=== PATIENT | female | born 1990 | race American Indian/Alaskan Native ===

== ENCOUNTER 2017-04-12 14:41 | Emergency (ER) | payer MEDICAID ==
--- NOTE | 2017-04-12 15:26 | Emergency Department Report ---
Stated Complaint: RT ABD PAIN/SPOTTING Time Seen by Provider: 04/12/17 15:22 - HPI History of Present Illness: PT states she has paragaurd IUD and had a pap smear last week. PT states she had lmp 03-26-17 and she has been intermittently bleeding since then. PT c/o R pelvic pain x 1 week - ROS Review of Systems: + RLQ pain, intermittent x 1 week + vaginal spotting x 2 weeks - Exam Physical Exam: PT looks well, non toxic abd soft, R pelvic ttp MSE screening note: Focused history and physical exam performed. Due to findings the following was ordered: labs, us ED Disposition for MSE Condition: Stable
[2017-04-12 16:07] LABS: Basophils % (Auto) 0.9 % (0.0-1.8); Eosinophils % (Auto) 1.6 % (0.0-4.3); Hemoglobin 12.1 gm/dl (10.1-14.3); Mean Corpuscular HGB Conc 33 % (30-34); Mean Corpuscular Hemoglobin 27 pg (28-32); Mean Corpuscular Volume 82 fl (79-97); Platelet Count 271 K/mm3 (140-440); Red Blood Count 4.52 M/mm3 (3.65-5.03); White Blood Count 5.4 K/mm3 (4.5-11.0)
[2017-04-12 16:26] LABS: Alanine Aminotransferase 12 units/L (7-56); Albumin 4.6 g/dL (3.9-5); Albumin/Globulin Ratio 1.4 %; Alkaline Phosphatase 55 units/L (35-129); Anion Gap 17 mmol/L; BUN/Creatinine Ratio 18.57; Blood Urea Nitrogen 13 mg/dL (7-17); Calcium 9.2 mg/dL (8.4-10.2); Carbon Dioxide 26 mmol/L (22-30); Chloride 100.5 mmol/L (98-107); Glucose 85 mg/dL (65-100); Potassium 4.1 mmol/L (3.6-5.0); Sodium 139 mmol/L (137-145); Total Protein 7.9 g/dL (6.3-8.2)
[2017-04-12 18:20] LABS: Bilirubin,Urine NEG (Negative); Blood,Urine LG (Negative); Ketones,Urine NEG (Negative); Leukocyte Esterase,Urine MOD (Negative); Mucus,Urine FEW /HPF; Nitrite,Urine NEG (Negative); Urobilinogen,Urine < 2.0 mg/dL (<2.0)
--- NOTE | 2017-04-12 18:51 | Ultrasound Report ---
FINAL REPORT EXAM: US TRANSVAGINAL HISTORY: paragaurd, R pelvic pain TECHNIQUE: Grayscale and color doppler ultrasound imaging of the pelvis was performed transvaginally. PRIORS: None. FINDINGS: Uterus: The uterus is homogeneous in echogenicity without focal mass. The uterus measures 7.1 x 4.6 x 5.4 centimeters. An intrauterine device is in appropriate position within the uterus. Endometrium: The endometrium is normal in echogenicity. The endometrium measures 14 millimeters. Ovaries: A complex cyst is seen within the left ovary measuring 2.3 centimeters. No right ovarian cysts. Normal color flow is seen to the left ovary. Doppler interrogation of the right ovary was not performed. The right ovary measures 2.2 x 1.1 x 1.8 centimeters. The left ovary measures 3.0 x 2.4 x 2.8 centimeters. Free fluid: A tiny amount of free fluid is seen within the pelvis which is likely physiologic. IMPRESSION: 1. Probable 2.3 centimeter hemorrhagic left ovarian cyst. Recommend followup pelvic ultrasound in 6-10 weeks. 2[address] IUD in place. 3. Normal right ovary.
--- NOTE | 2017-04-12 19:23 | Ultrasound Report ---
FINAL REPORT EXAM: US PELVIC COMPLETE HISTORY: paragaurd, R pelvic pain TECHNIQUE: Transabdominal pelvic ultrasound was performed in multiple grayscale sonographic images were obtained of the uterus and adnexa PRIORS: Endovaginal ultrasound from 04/12/2017 FINDINGS: Uterus is incompletely evaluated this study. Visualized portion of the endometrium measures approximately 6 millimeters in thickness. Intrauterine device is incompletely evaluated in this study. Ovaries were not visualized. IMPRESSION: 1. Visualized portion of the endometrium measures 6 millimeters in thickness. 2. Nonvisualization of the ovaries. 3. Please refer to report from endovaginal ultrasound from 04/12/2017 for additional information.
--- NOTE | 2017-04-13 00:14 | Emergency Department Report ---
HPI - General Chief Complaint: Abdominal Pain Time Seen by Provider: 04/12/17 15:22 - HPI HPI: This is a 26-year-old female presents to the emergency department with complaint of right-sided pelvic pain as well as some vaginal bleeding/spotting. The patient said she had her menstrual cycle on the first of this month and then the bleeding started but a few days later. Began again and she has been having about 2 weeks of vaginal spotting. For the past week she has also been having this intermittent discomfort to the right side of the pelvis. She denies any fever, nausea, vomiting, back pain, dysuria, vaginal discharge. She denies any significant past medical history. She has not taken anything for her symptoms prior to presentation. She denies any past surgical history. She does not have a primary care physician but used to go to [facility] for her gynecological needs. She is not taking anything for her symptoms prior to presentation. No recent travel or sick contacts at home. 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 - Surgical History Hx Cholecystectomy: Yes - Social History Smoking Status: Never Smoker Substance Use Type: None - Medications Home Medications: Home Medications Medication Instructions Recorded Confirmed Last Taken Type Vit No.126/Iron/FA 1 each PO DAILY 09/04/14 12/13/15 12/11/15 09:00 History [Classic Tablet] 1 Ursodiol [Ursodiol] 1 tab PO 4XD 11/06/15 12/13/15 12/10/15 21:00 History 1 Ibuprofen [Motrin 800 MG tab] 800 mg PO Q8HR PRN #30 tablet 12/14/15 Unknown Rx Lidocain2.5%/Prilocai2.5% [Emla] 5 gm TP ONCE PRN #1 tube 12/14/15 Unknown Rx HYDROcodone/APAP 5-325 [[place] 1 each PO Q6HR PRN #10 tablet 04/13/17 Unknown Rx 5/325] ED Review of Systems ROS: Stated complaint: RT ABD PAIN/SPOTTING Other details as noted in HPI Comment: All other systems reviewed and negative Constitutional: denies: chills, fever Eyes: denies: eye pain, eye discharge, vision change ENT: denies: ear pain, throat pain Respiratory: denies: cough, shortness of breath, wheezing Cardiovascular: denies: chest pain, palpitations Gastrointestinal: denies: nausea, vomiting Genitourinary: other (pelvic pain, vaginal bleeding). denies: dysuria, discharge Musculoskeletal: denies: back pain, joint swelling, arthralgia Skin: denies: rash, lesions Neurological: denies: headache, weakness, paresthesias Physical Exam - Physical Exam Vital Signs: Vital Signs 04/12/17 04/12/17 15:22 21:56 Temperature 98.6 F 97.7 F Pulse Rate 78 61 Respiratory 20 18 Rate Blood Pressure 123/84 112/69 O2 Sat by Pulse 100 100 Oximetry Physical Exam: GENERAL: The patient is well-developed well-nourished. HENT: Normocephalic. Atraumatic. Patient has moist mucous membranes. EYES: Extraocular motions are intact. Pupils equal reactive to light bilaterally. NECK: Supple. Trachea is midline. CHEST/LUNGS: Clear to auscultation. There is no respiratory distress noted. HEART/CARDIOVASCULAR: Regular. There is no tachycardia. There is no gallop rub or murmur. ABDOMEN: Abdomen is soft, nontender. Patient has normal bowel sounds. There is no abdominal distention. No guarding or rebound tenderness. SKIN: Skin is warm and dry. NEURO: The patient is awake, alert, and oriented. The patient is cooperative. The patient has no focal neurologic deficits. The patient has normal speech. MUSCULOSKELETAL: There is no tenderness or deformity. There is no evidence of acute injury. ED Course Vital Signs 04/12/17 04/12/17 15:22 21:56 Temperature 98.6 F 97.7 F Pulse Rate 78 61 Respiratory 20 18 Rate Blood Pressure 123/84 112/69 O2 Sat by Pulse 100 100 Oximetry ED Medical Decision Making - Lab Data Result diagrams: 04/12/17 15:49 04/12/17 15:49 - Radiology Data Radiology results: report reviewed EXAM: US TRANSVAGINAL HISTORY: paragaurd, R pelvic pain TECHNIQUE: Grayscale and color doppler ultrasound imaging of the pelvis was performed transvaginally. PRIORS: None. FINDINGS: Uterus: The uterus is homogeneous in echogenicity without focal mass. The uterus measures 7.1 x 4.6 x 5.4 centimeters. An intrauterine device is in appropriate position within the uterus. Endometrium: The endometrium is normal in echogenicity. The endometrium measures 14 millimeters. Ovaries: A complex cyst is seen within the left ovary measuring 2.3 centimeters. No right ovarian cysts. Normal color flow is seen to the left ovary. Doppler interrogation of the right ovary was not performed. The right ovary measures 2.2 x 1.1 x 1.8 centimeters. The left ovary measures 3.0 x 2.4 x 2.8 centimeters. Free fluid: A tiny amount of free fluid is seen within the pelvis which is likely physiologic. IMPRESSION: 1. Probable 2.3 centimeter hemorrhagic left ovarian cyst. Recommend followup pelvic ultrasound in 6-10 weeks[address] 2[address] IUD in place. 3. Normal right ovary. - Medical Decision Making 26-year-old female presents with a 2 week history of some vaginal spotting that is off of her menstrual cycle and a one-week history of some intermittent right lower quadrant pelvic pain. Labs are mostly unremarkable. No leukocytosis. The patient is not . No urinary tract infection. She does not complain of any discharge. Vital signs stable including being afebrile. Transvaginal ultrasound was done that shows a left-sided ovarian hemorrhagic cyst. This may not necessarily be the source of her discomfort but there does not appear to be any dangerous or emergent condition. She has low suspicion for appendicitis as there is no leukocytosis, abdominal tenderness to palpation , peritoneal signs. Right ovary appears normal and there are no torsions. She appears safe for discharge home at this time. She has been given referrals for [facility] and primary care. She will return to the ER if any worsening of her symptoms or any acute distress. - Differential Diagnosis ovarian torsion, ovarian cyst, , UTI, fibroids Critical Care Time: No Critical care attestation.: If time is entered above; I have spent that time in minutes in the direct care of this critically ill patient, excluding procedure time. ED Disposition Clinical Impression: Hemorrhagic cyst of left ovary, Pelvic pain Disposition: TO HOME OR SELFCARE Is pt being admited?: No Condition: Stable Instructions: Dysfunctional Uterine Bleeding (ED), Ovarian Cyst (ED) Additional Instructions: Please follow up with an [facility] [facility] in the next few days. I have also given you multiple referrals for primary care clinics. Return to the emergency Department with any worsening of your symptoms or any acute distress. You have been prescribed a medication that is sedating and therefore should not be taken prior to driving, working, and responsible for children and in no way should be mixed with alcohol of any quantity. Prescriptions: HYDROcodone/APAP 5-325 [[place] 5/325] 1 each PO Q6HR PRN #10 tablet PRN Reason: Pain Referrals: PRIMARY CARE, [Primary Care Provider] - 3-5 Days [facility] [Outside] - 3-5 Days [facility] [Outside] - 3-5 Days [facility] [Provider Group] - 3-5 Days [facility] [Provider Group] - 3-5 Days Time of Disposition: 00:09
[2017-04-13 00:21] VITALS: BP 114/71
== END 2017-04-13 00:20 | disposition home or self-care (01) ==
LOC: ED 14:41
DX: N83.8 Other noninflammatory disorders of ovary, fallopian tube and broad ligament (principal); R10.2 Pelvic and perineal pain; M19.90 Unspecified osteoarthritis, unspecified site; G43.909 Migraine, unspecified, not intractable, without status migrainosus; Z90.49 Acquired absence of other specified parts of digestive tract
CPT/HCPCS: 36415; 76830; 76856; 80053; 81001; 84703; 85025

== ENCOUNTER 2017-08-06 03:59 | Emergency (ER) | payer MEDICAID, OTHER ==
[2017-08-06 04:19] VITALS: BP 117/80
[2017-08-06] MEDS ORDERED: ASPIRIN PO ONE (04:19)
[2017-08-06] MEDS ORDERED: ASPIRIN ONE (04:22)
[2017-08-06 05:29] LABS: Basophils % (Auto) 0.8 % (0.0-1.8); Eosinophils # (Auto) 0.1 K/mm3 (0.0-0.4); Eosinophils % (Auto) 3.2 % (0.0-4.3); Hematocrit 38.6 % (30.3-42.9); Hemoglobin 12.7 gm/dl (10.1-14.3); Lymphocytes # (Auto) 1.5 K/mm3 (1.2-5.4); Lymphocytes % (Auto) 36.8 % (13.4-35.0); Mean Corpuscular HGB Conc 33 % (30-34); Mean Corpuscular Hemoglobin 27 pg (28-32); Mean Corpuscular Volume 82 fl (79-97); Monocytes # (Auto) 0.4 K/mm3 (0.0-0.8); Monocytes % (Auto) 9.2 % (0.0-7.3); Platelet Count 237 K/mm3 (140-440); Red Blood Count 4.73 M/mm3 (3.65-5.03); Red Cell Distribution Width 14.3 % (13.2-15.2)
[2017-08-06 05:50] LABS: BUN/Creatinine Ratio 13; Blood Urea Nitrogen 8 mg/dL (7-17); Calcium 8.6 mg/dL (8.4-10.2); Hemolysis Index 5
--- NOTE | 2017-08-06 06:54 | Cat Scan Report ---
FINAL REPORT PROCEDURE: CT HEAD/BRAIN WO CON TECHNIQUE: Computerized tomography of the head was performed without contrast material. HISTORY: cp with [facility] COMPARISON: No prior studies are available for comparison. FINDINGS: Skull and scalp: Normal. Paranasal sinuses: Normal. Ventricles and subarachnoid spaces: Normal. Cerebrum: No evidence of hemorrhage, acute infarction or mass . Cerebellum and brainstem: No evidence of hemorrhage, acute infarction or mass. Vasculature: Normal. Comments: None. IMPRESSION: Normal Examination
[2017-08-06 07:12] LABS: Bacteria,Urine 1+ /HPF (Negative); Bilirubin,Urine NEG (Negative); Blood,Urine SM (Negative); Color,Urine Yellow (Yellow); Nitrite,Urine NEG (Negative); Urobilinogen,Urine < 2.0 mg/dL (<2.0)
== END 2017-08-06 04:25 | disposition left against medical advice (07) ==
LOC: ED 03:59
DX: R07.9 Chest pain, unspecified (principal); Z53.21 Procedure and treatment not carried out due to patient leaving prior to being seen by health care provider
CPT/HCPCS: 36415; 70450; 80048; 81001; 84484; 84703; 85025; 93005; 93010

== ENCOUNTER 2019-08-16 11:17 | Emergency (ER) | payer OTHER | END 2019-08-16 14:13 | disposition left against medical advice (07) | LOC: ED 11:17 | DX: R10.9 Unspecified abdominal pain (principal); Z53.21 Procedure and treatment not carried out due to patient leaving prior to being seen by health care provider ==